=== PATIENT | female | born 1990 | race Caucasian/White ===

== ENCOUNTER 2020-11-29 18:04 | Emergency (ER) | payer OTHER, SELFPAY ==
[2020-11-29 18:06] VITALS: BP 149/89; PULSE 112; RESP 17; TEMP 36.4; O2SAT 100
[2020-11-29 18:52] LABS: Basophils Percent Auto 0.3 % (0.2-1.2); Eosinophils Absolute Auto 0.3 K/mm3 (0-0.3); Eosinophils Percent Auto 2.8 % (0-4.4); Hematocrit 41.9 % (37.0-47.0); Immature Granulocyte Absolute 0.05 K/mm3 (0.00-0.031); Immature Granulocyte Percent A 0.5 % (0-0.5); Lymphocytes Absolute Auto 3.46 K/mm3 (0.9-3.2); Lymphocytes Percent Auto 31.9 % (18.3-44.2); Mean Corpuscular HGB Conc 33.4 g/dl (32-36); Mean Corpuscular Hemoglobin 31.1 pg (26-34); Mean Corpuscular Volume 93.1 fl (80-100); Mean Platelet Volume 10.8 fl (7.4-10.4); Monocytes Percent Auto 9.2 % (2.6-8.5); Neutrophils Percent Auto 55.3 % (45.5-73.1); Platelet Count Result 296 k/mm3 (150-375); Red Cell Distribution Width 14.2 % (11.5-14.5); White Blood Count 10.8 K/mm3 (4.5-10.0)
[2020-11-29 19:07] LABS: Alanine Aminotransferase 18 U/L (4-35); Albumin Level 4.9 g/dL (3.5-5.1); Alkaline Phosphatase 53 U/L (38-126); Anion Gap 7 mmol/L (8-16); Aspartate Amino Transferase 24 U/L (14-36); Bilirubin,Total 0.9 mg/dL (0.2-1.3); Blood Urea Nitrogen 13 mg/dL (7-17); Calcium 9.8 mg/dL (8.4-10.2); Carbon Dioxide 28 mmol/L (22-30); Chloride 102 mmol/L (98-107); Estimated CRCL calculation 75 ml/min; Estimated Glomerular Filt Rate > 60; Glucose 106 mg/dL (65-105); Potassium 4.3 mmol/L (3.4-5.0); Sodium 137 mmol/L (137-145)
[2020-11-29 19:20] LABS: Add Urine Microscopic? YES; Appearance Urine Cloudy (Clear); Bilirubin Urine Negative (Negative); Blood Urine 3+ (Negative); Color Urine Red (Yellow); Glucose Urine UA Negative (Negative); Ketones Urine 1+ mg/dL (Negative); Leukocyte Esterase Ur Negative LEU/UL (Negative); Mucus Urine Heavy /lpf; Nitrate Urine Negative (Negative); Protein Urine 3+ mg/dL (Negative); RBC Urine >75 /hpf (0-2); Specific Grav Ur 1.028 (1.001-1.035); Squamous Epithelial Cell Urine Many /hpf (Few); Urobilinogen Urine Negative mg/dL (<2.0); WBC Urine 16-20 /hpf
--- NOTE | 2020-11-29 20:11 | ED.GENADULT ---
HPI - General Adult General Chief complaint: Vaginal Bleeding <Artemio Chavez PA-C - Last Filed: 11/29/20 20:21> Stated complaint: ABNORMAL BLEEDING <Artemio Chavez PA-C - Last Filed: 11/29/20 20:21> Time Seen by Provider: 11/29/20 18:20 <Artemio Chavez PA-C - Last Filed: 11/29/20 20:21> Source: patient <RITA Pepper Last Filed: 11/29/20 20:21> Mode of arrival: ambulatory <RITA Pepper Last Filed: 11/29/20 20:21> Limitations: no limitations <Artemio Chavez PA-C - Last Filed: 11/29/20 20:21> History of Present Illness HPI narrative: Patient presents with chief complaint of vaginal bleeding that began today. Patient states she has very mild pelvic cramping. Patient states she is due for her menstrual cycle and at times has very heavy periods. Patient states that she noticed 2 large blood clots today so she called Dr. Null and he instructed her to present to the emergency department because after she inserted a diva cup she noticed a collection of 7.5 mL of blood over a few hours. Patient states that after she is she began feeling a little anxious. Patient states that she has issues with anxiety. Patient states that she had a D&C 2 years ago and has been struggling with heavy menstrual periods for quite some time. <Artemio Chavez PA-C - Last Filed: 11/29/20 20:21> Related Data Home medications: Home Medications Medication Instructions Recorded Confirmed alprazolam 11/29/20 dextroamphetamine-amphetamine 11/29/20 trazodone 11/29/20 11/29/20 <RITA Pepper Last Filed: 11/29/20 20:21> Allergies/adverse reactions: Allergies Allergy/AdvReac Type Severity Reaction Status Date / Time No Known Allergies Allergy Mild Verified 11/29/20 18:10 <RITA Pepper Last Filed: 11/29/20 20:21> Review of Systems Review of Systems: Narrative: CONSTITUTIONAL: Denies fever, chills, or sweats. EYES: Denies visual changes, redness, or discharge. ENT: Denies rhinorrhea, congestion, sore throat, or otalgia. CARDIOVASCULAR: Denies chest pain, palpitations, or edema. RESPIRATORY: Denies cough or dyspnea. GASTROINTESTINAL: Denies abdominal pain, nausea, vomiting, or diarrhea. GENITOURINARY: Reports vaginal bleeding denies dysuria or hematuria. SKIN: Denies rash or itching. MUSCULOSKELETAL: Denies back pain, joint pain, or myalgia. NEUROLOGIC: Denies headache, numbness, dizziness, or weakness. PSYCHIATRIC: Denies anxiety or depression. <Artemio hCavez PA-C - Last Filed: 11/29/20 20:21> [facility] Past Medical History Medical History: Medical History (Updated 11/29/20 @ 20:21 by Artemio Chavez PA-C) Anxiety Heavy menstrual bleeding <Artemio Chavez PA-C - Last Filed: 11/29/20 20:21> Social History Social History: Social History Gender identity (if verbalized by the patient): Female <Artemio Chavez PA-C - Last Filed: 11/29/20 20:21> Exam Narrative: Exam Narrative: GENERAL: Well-appearing, well-nourished, and in no acute distress. HEAD: Normocephalic, atraumatic. EYES: PERRLA and EOMI. NECK: Supple. No adenopathy or masses. CHEST: Clear to auscultation. No respiratory distress. No wheezes rales or rhonchi HEART: Regular rate and rhythm. ABDOMEN: Soft, nontender, nondistended, normal active bowel sounds. VAGINAL: Cervix is appropriate without tissues in vaginal canal. There is not profuse bleeding. There is a small amount of dark red blood in the vaginal canal. No clots appreciated. EXTREMITIES: Normal range of motion. No edema. SKIN: Warm, dry, no rash. NEURO: No focal deficits. Alert and oriented x3. PSYCH: Patient is mildly anxious.. <Artemio Chavez PA-C - Last Filed: 11/29/20 20:21> Course Vital Signs Vital signs: Vital Signs Temperature 97.5 F L 11/29/20 18:06 Pulse Rate 112 H 11/29/20 18:06 Respiratory Rate 17 11/29/20 18:06 Blood Pressure 149/89 H 11/29/20 18:06 Pulse Oximetry
[2020-11-29 20:17] VITALS: BP 135/99; PULSE 99; RESP 20; O2SAT 100
[2020-11-29 20:35] VITALS: BP 128/99; PULSE 99; RESP 20; TEMP 36.7; O2SAT 100
== END 2020-11-29 20:36 | disposition home or self-care (01) ==
PROVIDERS: Physician Assistant; Emergency Provider General Practice; PCP Internal Medicine Gastroenterology
DX: N92.0 Excessive and frequent menstruation with regular cycle (principal); F41.9 Anxiety disorder, unspecified
CPT/HCPCS: 36415; 80053; 81001; 81025; 85025; 87086; 87088; 99284

== ENCOUNTER 2022-11-10 00:34 | Day surgery (SDC) | payer OTHER, SELFPAY ==
[2022-10-21 15:09] VITALS: BMI 25.8
--- NOTE | 2022-10-21 15:24 | PC.NURSE ---
Addendum entered by Ruth Marinelli RN 11/04/22 13:48: PT TO ARRIVE AT 0830 ON 11/10 FOR SURGERY AT 1030. Original Note: Report to the Outpatient Waiting Room, entrance under the green pavilion located off [facility], at time 1100 on date 11/04/22. Planned Procedure Time: 1300. Time changes happen often and if your time is changed the preop area will call you the afternoon before. - You and your visitor will be asked to self-screen and do not enter if you have any COVID symptoms. - Only one visitor is requested with a max of two and NO children visitors are allowed at this time. - The patient visitor may be requested to leave or wait in car when not with patient due to distancing restrictions. - A mask is optional within the hospital. Patients may ONLY have clear liquids THE DAY BEFORE SURGERY (SATURDAY 11/03) - No food OR DRINK from midnight until time of surgery Take the following medications with a SIP of water the morning of surgery: XANAX IF NEEDED Medications to discontinue per physician: N/A Date to take last dose: N/A FLEETS ENEMA NIGHT BEFORE AND MORNING OF SURGERY (UNLESS PAINFUL RECTAL CONDITION) DULCOLAX 5MG TABLET NIGHT BEFORE SURGERY Please no make-up, nail palauan, hairspray, perfume, deodorant, or body powder the day of surgery. No jewelry (including any body piercings) or valuables the day of surgery, leave them at home. Please take a shower or bath the night before, or the morning of, surgery with an antibacterial soap. Wear comfortable, loose fitting clothing. - Jewelry must be removed prior to entering the operating room. Rings and piercings that are not removed may be cut off. - The hospital will not accept responsibility for valuables. - Please leave all valuables, including medications, at home the day of surgery. If you are going home after surgery, a licensed box truck driver must drive you home. - NO public transportation without another adult if you receive anesthesia. - We recommend that an adult stay with you for 24 hours following discharge. - We also recommend that you do not drive, make important decision, drink alcoholic beverages, or take any drugs that were not prescribed by your health care provider for at least 24 hours after your discharge time. Follow any additional instructions given to you from your surgeon. If you or anyone in your household have experienced Covid symptoms in the past week, please notify your surgeon or the nurse liaison at the phone number below for possible testing. Telephone instructions given to SEBASTIÁN JO and asked if any additional questions and then verbalized understanding. Patient advised to call surgeon office or pre surgery nurse liaison [phone] if any additional questions.
--- NOTE | 2022-11-04 13:48 | PC.NURSE ---
Pt states no changes in medications or health history since initial interview. New pre-op instructions reviewed with pt. Pt denies further questions at this time.
[2022-11-10] VITALS (9 sets, daily range): BP systolic 91–121; BP diastolic 61–82; PULSE 69–92; RESP 12–20; TEMP 36.1–36.6; O2SAT 100
--- NOTE | 2022-11-10 08:05 | WPDANESEPPF ---
Anes - Initial Pre Proc Eval Procedure: Operation Date: 11/10/22 10:30 Proposed Procedures p Excision of External Hemorrhoids - Casper Daigle MD Date/Time: 11/10/22 08:05 Surgeon: Casper Daigle MD Pre Op Diagnosis: external hemorrhoids Patient Data Age: 32 Gender: F Height: 1.57 m Weight: 64 kg Allergies Allergy/AdvReac Type Severity Reaction Status Date / Time No Known Allergies Allergy Mild Verified 11/10/22 09:45 Home Medications Medication Instructions Recorded Confirmed Type alprazolam 0.25 mg tablet 0.25 mg PO BID PRN Anxiety 11/29/20 11/04/22 History dextroamphetamine-amphetamine 30 30 mg PO BID 11/29/20 11/04/22 History mg tablet amitriptyline 25 mg tablet 25 mg PO HS 10/21/22 11/04/22 History Patient hx anesthesia problems: post op nausea/vomiting Family hx anesthesia problems: none Results Review: All pre-operative results and documents have been reviewed as part of the pre-operative evaluation. [facility] Past Medical History Medical History (Updated 11/10/22 @ 08:05 by Kev Phipps DO) ADHD Anxiety Depression GERD (gastroesophageal reflux disease) Heavy menstrual bleeding PONV (postoperative nausea and vomiting) Stomach ulcer Surgical History Surgical History History of x2 2009, 2010 History of surgical removal of ganglion cyst 2010 Hx of appendectomy 2014 Family History Family History Other Cancer Cerebrovascular accident Diabetes mellitus Heart disease Hypertension Kidney disease Social History Social History Years smoked: 20 Smoking status: Current some day smoker Additional smoking assessment comments: 4 CIGARETTES A WEEK Alcohol intake: never Substance use: current Substance use type: marijuana Living arrangements: with family Gender identity (if verbalized by the patient): Female Spiritual care concerns: No Anes - Eval Final PreProcedure Day of Procedure 11/10/22 08:05 Patient weight: overweight Heart: regular rate and rhythm Lungs: clear to auscultation Airway: Mallampati scale class II Neurological: alert and oriented Last oral intake: >/= 8 hours ASA classification: II Emergent: no Anesthetic plan: proceed Anesthesia type and monitoring: general ETT and standard monitoring Results Review: All pre-operative results and documents have been reviewed as part of the pre-operative evaluation. Informed Consent: The patient's anesthetic plan and its attendant risks and benefits were discussed with the patient/family/POA. Questions were solicited and answers provided to the satisfaction of the patient/family/POA.
--- NOTE | 2022-11-10 08:52 | WPDHPUPDATE1 ---
History and Physical Update Update Date/Time: 11/10/22 08:52 History and Physical has been reviewed, including an updated exam of the patient. There are NO changes in the patient's condition. Risks, benefits, and alternatives have been discussed and questions answered. Patient agrees to proceed with procedure.
[2022-11-10] MEDS: LACTATED RINGERS 1,000 ML 30 ML IV CONT ×2 (09:30→12:37)
[2022-11-10] MEDS: KETOROLAC 15 MG/ML VIAL (*BKC) IV PUSH (09:30)
[2022-11-10] MEDS: ACETAMINOPHEN 500 MG TABLET 1000 MG PO (09:30)
[2022-11-10] MEDS: SCOPOLAMINE 1.5 MG PATCH TRANSDERM (10:30)
[2022-11-10] MEDS: ceFAZolin 2 GM/D5W 50 ML 2 GM/50 ML BAG IVPB (10:37)
[2022-11-10] MEDS: BUPIVACAINE/EPINEPHRINE 0.5% 10 ML VIAL 20 ML INFILTRATE (11:07)
--- NOTE | 2022-11-10 11:26 | P.OP_ITS ---
Procedure Note - Detailed Date of Procedure 11/10/22 Pre-op Diagnosis Internal and external hemorrhoids with bleeding Post-op Diagnosis Same Procedure Performed Excision left lateral internal and external hemorrhoids, rubber-band ligation internal hemorrhoids right posterior and right anterior locations Surgeon Casper Daigle MD Non Food Receiving Clerk Jose LYNNEA Anesthesia General and Local (0.5% Marcaine with epinephrine) Indications Patient has had rectal bleeding with hemorrhoids for many years. Exam showed primarily external hemorrhoids but on the left lateral position the hemorrhoids were larger and appeared to be associated with an internal hemorrhoid. She is taken to surgery now for hemorrhoidectomy. Findings The left lateral complex was internal and external hemorrhoids. This was excised. Internal hemorrhoids at the right posterior and right anterior locations were rubber-band ligated. They were smaller. Description of Procedure Patient was taken to surgery and induced into general anesthesia. She was then turned and placed in prone slade-knife position. The buttocks were taped apart. Prep and drape was carried out. The Madonna small anoscope was introd uced. Findings were as above. I infiltrated local anesthetic using 20 cc deep subdermal and 10 cc intra sphincteric. I then excised the internal and external hemorrhoids in the left lateral position. The wound was closed with subcuticular interrupted 4-0 Vicryl suture. I then went to the other side of the patient and rubber-band ligated both the right anterior internal hemorrhoids as well as the right posterior internal hemorrhoids. No other significant pathology was noted. Patient was returned to a supine position, awakened and extubated. She was taken to recovery in good condition. Sponge and needle counts were correct x2. Estimated Blood Loss -5 Drains No Packing No Pathology Yes (Left lateral internal and external hemorrhoid) Complications No immediate complications Condition Stable Disposition PACU [facility] Billing Surgery - Charge Forward: Surgery Billing (Excision single column internal and external hemorrhoids, rubber-band ligation internal hemorrhoids)
[2022-11-10] MEDS: fentaNYL CITRATE INJ (*CRX) 100 MCG/2 ML VIAL 25 MCG IV PUSH ×8 (11:56→12:31)
[2022-11-10] MEDS: oxyCODONE HCL (*CRX) 5 MG TAB IR PO (12:56)
== END 2022-11-10 13:25 | disposition home or self-care (01) ==
PROVIDERS: PCP Nurse Practitioner Family; Visit Provider Surgery
PROC: (CPT 46255; principal; 2022-11-10 10:30)
DX: K64.8 Other hemorrhoids (principal); K64.4 Residual hemorrhoidal skin tags; F90.9 Attention-deficit hyperactivity disorder, unspecified type; F41.9 Anxiety disorder, unspecified; F32.A Depression, unspecified; F17.210 Nicotine dependence, cigarettes, uncomplicated; F12.90 Cannabis use, unspecified, uncomplicated
CPT/HCPCS: 46255; 88304; A9270; J0330; J0690; J1885; J2250; J2405; J2704; J3010; J7120

== ENCOUNTER 2022-11-15 21:16 | Emergency (ER) | payer OTHER, SELFPAY ==
[2022-11-15 21:40] VITALS: BP 124/70; PULSE 97; RESP 16; TEMP 36.5; O2SAT 100
--- NOTE | 2022-11-16 00:53 | PC.NURSE ---
patient left at this time with out being seen due to wait times
== END 2022-11-16 00:53 | disposition left against medical advice (07) ==
PROVIDERS: PCP Nurse Practitioner Family
DX: K62.89 Other specified diseases of anus and rectum (principal)
CPT/HCPCS: 99199

== ENCOUNTER 2022-11-25 01:20 | Day surgery (SDC) | payer OTHER, SELFPAY ==
[2022-11-23 15:57] VITALS: BMI 25.8
--- NOTE | 2022-11-23 15:57 | PC.NURSE ---
Report to the Outpatient Waiting Room, entrance under the green pavilion located off [facility], at time 1130 on date 11/25/22. Planned Procedure Time: 1330. Time changes happen often and if your time is changed the preop area will call you the afternoon before. - You and your visitor will be asked to self-screen and do not enter if you have any COVID symptoms. - Only one visitor is requested with a max of two and NO children visitors are allowed at this time. - The patient visitor may be requested to leave or wait in car when not with patient due to distancing restrictions. - A mask is REQUIRED within the hospital. Patients may have clear liquids (water, carbonated beverages, clear teas, apple juice) until 3 hours prior to surgery with a maximum of 20 ounces. - No food from midnight until time of surgery Take the following medications with a SIP of water the morning of surgery: XANAX IF NEEDED Medications to discontinue per physician: N/A Date to take last dose: N/A FLEETS ENEMA (NIGHT BEFORE AND MORNING OF SURGERY) AND DULCOLAX NIGHT BEFORE SURGERY PER DR. HARTLEY'S INSTRUCTIONS Please no make-up, nail mongolian, hairspray, perfume, deodorant, or body powder the day of surgery. No jewelry (including any body piercings) or valuables the day of surgery, leave them at home. Please take a shower or bath the night before, or the morning of, surgery with an antibacterial soap. Wear comfortable, loose fitting clothing. - Jewelry must be removed prior to entering the operating room. Rings and piercings that are not removed may be cut off. - The hospital will not accept responsibility for valuables. - Please leave all valuables, including medications, at home the day of surgery. If you are going home after surgery, a licensed refrigerated company driver must drive you home. - NO public transportation without another adult if you receive anesthesia. - We recommend that an adult stay with you for 24 hours following discharge. - We also recommend that you do not drive, make important decision, drink alcoholic beverages, or take any drugs that were not prescribed by your health care provider for at least 24 hours after your discharge time. Follow any additional instructions given to you from your surgeon. If you or anyone in your household have experienced Covid symptoms in the past week, please notify your surgeon or the nurse liaison at the phone number below for possible testing. Telephone instructions given to SEBASTIÁN JO and asked if any additional questions and then verbalized understanding. Patient advised to call surgeon office or pre surgery nurse liaison [phone] if any additional questions.
[2022-11-25] MEDS: LACTATED RINGERS 1,000 ML 30 ML IV CONT (12:09)
[2022-11-25] MEDS: KETOROLAC 15 MG/ML VIAL (*BKC) IV PUSH (12:10)
[2022-11-25] MEDS: ACETAMINOPHEN 500 MG TABLET 1000 MG PO (12:10)
[2022-11-25 12:19] VITALS: BP 109/72; PULSE 78; RESP 16; TEMP 37.1; O2SAT 99
--- NOTE | 2022-11-25 12:21 | P.PNAN_ITS ---
Anes - Initial Pre Proc Eval Procedure: Operation Date: 11/25/22 13:30 Proposed Procedures p Anal Sphincterotomy - Casper Daigle MD Date/Time: 11/25/22 12:21 Surgeon: Casper Daigle MD Pre Op Diagnosis: Anal Fissure, Int & Ext Hemorrhoids Patient Data Age: 32 Gender: F Height: 1.57 m Weight: 70.1 kg Last Vital Signs Temp 37.1 C 11/25/22 12:19 Pulse 78 11/25/22 12:19 Resp 16 11/25/22 12:19 BP 109/72 11/25/22 12:19 Pulse Ox 99 11/25/22 12:19 O2 Del Method Room Air 11/25/22 12:19 Allergies Allergy/AdvReac Type Severity Reaction Status Date / Time No Known Allergies Allergy Mild Verified 11/25/22 11:55 Home Medications Medication Instructions Recorded Confirmed Type alprazolam 0.25 mg tablet 0.25 mg PO BID PRN Anxiety 11/29/20 11/25/22 History dextroamphetamine-amphetamine 30 30 mg PO BID 11/29/20 11/25/22 History mg tablet Patient hx anesthesia problems: none Family hx anesthesia problems: none Results Review: All pre-operative results and documents have been reviewed as part of the pre- operative evaluation. [facility] Past Medical History Medical History ADHD Anxiety Depression GERD (gastroesophageal reflux disease) Heavy menstrual bleeding PONV (postoperative nausea and vomiting) Stomach ulcer Surgical History Surgical History History of x2 2009, 2010 History of surgical removal of ganglion cyst 2010 Hx of appendectomy 2014 S/P hemorrhoidectomy excision external hemorrhoids performed 11/10/22 Family History Family History Other Cancer Cerebrovascular accident Diabetes mellitus Heart disease Hypertension Kidney disease Social History Social History Years smoked: 20 Smoking status: Current some day smoker Tobacco type: cigarettes Additional smoking assessment comments: 4 CIGARETTES/WEEK Alcohol intake: never Substance use: current Substance use type: marijuana Living arrangements: with family Gender identity (if verbalized by the patient): Female Spiritual care concerns: No Anes - Eval Final PreProcedure Day of Procedure 11/25/22 12:21 Patient weight: overweight Heart: regular rate and rhythm Lungs: clear to auscultation Airway: Mallampati scale class II Neurological: alert and oriented Last oral intake: >/= 8 hours ASA classification: II Emergent: no Anesthetic plan: proceed Anesthesia type and monitoring: general GIVS and standard monitoring Results Review: All pre-operative results and documents have been reviewed as part of the pre- operative evaluation. Informed Consent: The patient's anesthetic plan and its attendant risks and benefits were discussed with the patient/family/POA. Questions were solicited and answers provided to the satisfaction of the patient/family/POA.
--- NOTE | 2022-11-25 15:00 | WPDHPUPDATE1 ---
History and Physical Update Update Date/Time: 11/25/22 15:00 History and Physical has been reviewed, including an updated exam of the patient. There are NO changes in the patient's condition. Risks, benefits, and alternatives have been discussed and questions answered. Patient agrees to proceed with procedure.
[2022-11-25] MEDS: ceFAZolin 2 GM/D5W 50 ML 2 GM/50 ML BAG IVPB (15:07)
[2022-11-25] MEDS: BUPIVACAINE/EPINEPHRINE 0.5% 30 ML VIAL 60 ML INFILTRATE (15:32)
[2022-11-25 15:42] VITALS: BP 114/59; PULSE 100; RESP 16; O2SAT 100
[2022-11-25 16:07] VITALS: BP 125/81; PULSE 93; RESP 16; O2SAT 100
--- NOTE | 2022-11-25 16:07 | P.OP_ITS ---
Procedure Note - Detailed Date of Procedure 11/25/22 Pre-op Diagnosis Anal Fissure, Ext Hemorrhoids Post-op Diagnosis Other (Nonhealing rectal wound, external hemorrhoid) Procedure Performed Rectal exam under anesthesia, excision external hemorrhoid Surgeon Casper Daigle MD Triage Registered Nurse Jen Tellez [facility] Anesthesia MAC and Local (0.5% Marcaine with epinephrine) Indications Patient had constipation after her hemorrhoidectomy. When she did start having bowel movements she experienced severe rectal pain. This has been persistent. She was seen in the office and was very tender, it seemed she had a fissure with a tender external hemorrhoid as well in the left lateral position. She is taken to surgery now for internal sphincterotomy and excision of the external hemorrhoid. Findings Once patient was sedated, she had no increase in rectal sphincter tone and no fissure. She did have a nonhealing rectal wound which measured 4 cm x 1-1/2 cm. This was the site of the excision of the internal and external hemorrhoids at her original surgery. The tender external hemorrhoid was itself excised. No other significant findings were noted. The question of inflammatory bowel disease such as Crohn's proctitis is a concern. Description of Procedure Patient was taken to surgery and placed in prone slade-knife position. IV sedation was administered. Prep and drape of the perianal area was carried out. Inspection of the anal canal showed absolutely no evidence of anal sphincter spasm. I infiltrated local anesthetic then using 20 cc deep subdermal 20 cc intra sphincteric. I was easily able to place a medium Hill-Smith anoscope in the rectum. The external hemorrhoid which had been quite tender in the office was again noted. The wound where the single complex of internal and external hemorrhoids had been removed was larger than expected and did appear to be more inflamed than usual. No other anorectal pathology was noted. I decided that sphincterotomy was not indicated. I did excise the external hemorrhoid sharply and sent this to pathology. The wound was made hemostatic with the cautery and then closed with interrupted 4-0 nylon suture. I checked for he mostasis and again looked for any other pathology. Seeing none, we dressed the rectum with Xeroform gauze fluffs Promise panties. Patient was returned to a supine position, awakened, and taken to outpatient surgery in good condition. Sponge and needle counts were correct x2. Estimated Blood Loss -5 Drains No Packing No Pathology Yes (Left lateral external hemorrhoid) Complications No immediate complications Condition Stable Disposition Same day [facility] Billing Surgery - Charge Forward: Surgery Billing (Rectal exam under anesthesia, excision external hemorrhoid.)
[2022-11-25] MEDS: oxyCODONE HCL (*CRX) 5 MG TAB IR PO (16:18)
[2022-11-25 16:31] VITALS: BP 128/79; PULSE 96; RESP 16
[2022-11-25 16:53] VITALS: BP 111/79; PULSE 101; RESP 16
== END 2022-11-25 17:15 | disposition home or self-care (01) ==
PROVIDERS: PCP Nurse Practitioner Family; Visit Provider Surgery
PROC: (CPT 46999; principal; 2022-11-25 13:30)
DX: K64.4 Residual hemorrhoidal skin tags (principal); T81.89XA Other complications of procedures, not elsewhere classified, initial encounter; Y83.8 Other surgical procedures as the cause of abnormal reaction of the patient, or of later complication, without mention of misadventure at the time of the procedure; F90.9 Attention-deficit hyperactivity disorder, unspecified type; F41.9 Anxiety disorder, unspecified; F32.A Depression, unspecified; F17.210 Nicotine dependence, cigarettes, uncomplicated; F12.90 Cannabis use, unspecified, uncomplicated
CPT/HCPCS: 46999; 88304; A9270; J0690; J1100; J1885; J2250; J2405; J2704; J3010; J7120